=== PATIENT | female | born 1985 | race American Indian/Alaskan Native ===

== ENCOUNTER 2020-03-26 09:28 | Emergency (ER) | payer OTHER, MEDICAID ==
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
== END 2020-03-26 11:09 | disposition home or self-care (01) ==
LOC: ED 09:28
DX: S39.012A Strain of muscle, fascia and tendon of lower back, initial encounter (principal); Z98.890 Other specified postprocedural states; V89.2XXA Person injured in unspecified motor-vehicle accident, traffic, initial encounter; Y93.89 Activity, other specified; Y92.410 Unspecified street and highway as the place of occurrence of the external cause; Y99.8 Other external cause status
CPT/HCPCS: 99281

== ENCOUNTER 2022-01-02 19:01 | Emergency (ER) | payer MEDICAID ==
[2022-01-02 20:36] LABS: Color,Urine Colorless (Yellow)
[2022-01-02 20:39] LABS: HCG Qualitative,Urine Negative (Negative)
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
[2022-01-02 22:15] LABS: Alanine Aminotransferase 8 units/L (7-56); Albumin 3.9 g/dL (3.9-5); Blood Urea Nitrogen 7 mg/dL (7-17); Calcium 8.7 mg/dL (8.4-10.2); Hemolysis Index 0
[2022-01-02 22:16] LABS: BUN/Creatinine Ratio 10
[2022-01-02 23:50] VITALS: BP 128/67
== END 2022-01-02 23:50 | disposition home or self-care (01) ==
LOC: ED 19:01
DX: Z20.2 Contact with and (suspected) exposure to infections with a predominantly sexual mode of transmission (principal)
CPT/HCPCS: 36415; 80053; 81001; 81025; 87210; 87806; 99283